=== PATIENT | male | born 1985 | race African-American/Black ===

== ENCOUNTER 2024-05-22 10:49 | Emergency (ER) | payer OTHER ==
[~2024-05-22] VITALS: Ht 188 cm; Wt 72.7 kg
[2024-05-22 12:10] VITALS: BP 129/96; PULSE 66; RESP 16; TEMP 98.5
== END 2024-05-22 13:22 ==
LOC: EMS 10:49
DX: Z93.3 Colostomy status (principal); F17.210 Nicotine dependence, cigarettes, uncomplicated; F12.90 Cannabis use, unspecified, uncomplicated; Z98.890 Other specified postprocedural states
CPT/HCPCS: 99283; Z7502